=== PATIENT | female | born 1955 | race Caucasian/White ===

== ENCOUNTER 2023-01-13 16:54 | Outpatient (CLI) | payer MEDICARE | END 2023-01-13 16:55 | disposition home or self-care (01) | LOC: CSHRAD 16:54 | PROVIDERS: ATTEND Family Medicine | DX: R06.00 Dyspnea, unspecified (principal) | CPT/HCPCS: 71046 ==

== ENCOUNTER 2023-06-17 09:13 | Outpatient (CLI) | payer MEDICARE | END 2023-06-17 09:14 | disposition home or self-care (01) | LOC: CSHCP 09:13 | PROVIDERS: ATTEND Internal Medicine | DX: R06.09 Other forms of dyspnea (principal) | CPT/HCPCS: 94060; 94726; 94729; 94760 ==

== ENCOUNTER 2023-09-04 06:18 | Day surgery (SDC) | payer MEDICARE ==
[2023-09-03 12:13] VITALS: BMI 32.9
[2023-09-04] MEDS ORDERED: PROPOFOL 20 ML ONE ×2 (08:35→08:58)
[2023-09-04] MEDS ORDERED: Lidocaine 1% PF 5 ML VIAL ONE (08:35)
== END 2023-09-04 09:43 | disposition home or self-care (01) ==
LOC: CSHSDC 06:18
PROVIDERS: ATTEND Internal Medicine Gastroenterology
PROC: 0DJD8ZZ Inspection of Lower Intestinal Tract, Via Natural or Artificial Opening Endoscopic (ICD-10-PCS; principal; 2023-09-04)
DX: Z12.11 Encounter for screening for malignant neoplasm of colon (principal); K57.30 Diverticulosis of large intestine without perforation or abscess without bleeding; K64.9 Unspecified hemorrhoids; G47.33 Obstructive sleep apnea (adult) (pediatric); E78.5 Hyperlipidemia, unspecified; M19.90 Unspecified osteoarthritis, unspecified site; I10 Essential (primary) hypertension; Z86.010 Personal history of colon polyps; Z88.8 Allergy status to other drugs, medicaments and biological substances; Z98.890 Other specified postprocedural states; Z88.1 Allergy status to other antibiotic agents; Z79.899 Other long term (current) drug therapy; Z90.710 Acquired absence of both cervix and uterus; Z88.2 Allergy status to sulfonamides
CPT/HCPCS: J2704